=== PATIENT | male | born 1945 | race Caucasian/White ===

== ENCOUNTER 2018-06-15 07:40 | Day surgery (SDC) | payer MEDICARE, BC ==
[2018-06-14 13:18] VITALS: BMI 26.5
--- NOTE | 2018-06-15 01:50 | HP ---
SHORT-STAY HISTORY AND PHYSICAL DATE OF ADMISSION: 06/15/2018 HISTORY OF PRESENT ILLNESS: This is a 73-year-old male with a history of chronic acid reflux over the years. The patient has had EGD done I believe 6 years ago. 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 The patient advised to come back for EGD in 3 years, but did not come back until now. The patient takes Omeprazole with good symptom control. He does have occasional breakthrough symptoms. The patient also has had colonoscopy and polypectomy in 2013 with multiple sessile polyps removed. The patient comes in for colonoscopy because of multiple sessile polyps over in 2013 and for an EGD because of chronic acid reflux. ALLERGIES: None. MEDICAL ILLNESSES: 1. Chronic acid reflux. 2. Hypertension. 3. Colon polyp. 4. Hyperlipidemia. 5. Paroxysmal atrial fibrillation. 6. Coronary artery disease with defibrillator placement in the past. PHYSICAL EXAMINATION: VITAL SIGNS: Pulse is 70, blood pressure 130/80. HEENT: Conjunctivae clear. CARDIOVASCULAR SYSTEM: First and second heart sounds normal. LUNGS: Clear to auscultation. ABDOMEN: Soft to palpate. No organomegaly. No tenderness. No masses. EXTREMITIES: Reveal no edema. ADMITTING DIAGNOSES: 1. Chronic acid reflux, longstanding. 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 2. Multiple sessile polyps removed in the past. PLAN: EGD and colonoscopy. MTDD
--- NOTE | 2018-06-15 11:31 | OP ---
DATE OF PROCEDURE: 06/15/2018. OPERATIVE PROCEDURE: Colonoscopy. PREOPERATIVE DIAGNOSIS: Colon polyp. POSTOPERATIVE DIAGNOSES: 1. Sigmoid diverticular disease. 2. Hemorrhoids. PROCEDURE IN DETAIL: The patient was placed on his left lateral position and was given sedation by A nesthesia Department. A rectal exam was done before the scope was advanced into the rectum. No lesi ons were felt on rectal exam. A Pentax video colonoscope was introduced into the rectum and advanced all the way into the cecum. The prep was good. The mucosa appears normal through the colon. The a ppendiceal orifice, ileocecal valve, cecum, no pathology seen. Withdrawal of scope from the cecum to ascending colon, hepatic flexure, transverse colon, splenic flexure, descending colon, no pathology seen. The sigmoid colon showed scattered diverticula. Rectum showed hemorrhoids. DISCHARGE PLANNING: This is a 73-year-old male with a history of colon polyp on longstandi ng acid reflux who came for an EGD and a colonoscopy. The EGD showed irregular Z-line and duodenitis . The colonoscopy was basically negative. DISCHARGE RECOMMENDATIONS: 1. The patient was advised to call me if he develops any abdominal pain, hematochezia or fever. 2. High-fiber diet. 3. Metamucil once a day. 4. To come back to clinic in 2 weeks.
--- NOTE | 2018-06-15 11:42 | OP ---
DATE OF PROCEDURE: 06/15/2018 SURGEON: Francy Torres M.D. OPERATIVE PROCEDURE: Esophagogastroduodenoscopy with biopsy. PREOPERATIVE DIAGNOSIS: A 73-year-old male with longstanding acid reflux, previous EGD and biopsy showed Yeager's mucosa. The patient was on some PPI. The patient is undergoing an esophagogastroduodenoscopy. POSTOPERATIVE DIAGNOSES: 1. Irregular Z-line. 2. Duodenitis. PROCEDURE IN DETAIL: The patient was placed on his left lateral position and was given sedation by Anesthesia Department. A Pentax video gastroscope under direct vision was passed down the oropharynx, past the GE junction, into the stomach and subsequently into the descending duodenum. The esophageal mucosa appeared normal. The GE junction showed irregular Z-line. Biopsy taken of the area. The fundus, cardia, gastric body, gastric antrum, no pathology seen. The duodenal bulb showed erythematous mucosa. The descending duodenum, no pathology seen. The stomach was decompressed and the scope removed. DISCHARGE PLANNING: A 73-year-old male with history of colon polyps and also longstanding acid reflux. He had an EGD with biopsy and colonoscopy. DISCHARGE RECOMMENDATIONS: 1. The patient to take medicine as before. 2. He is advised to call me if he develops abdominal pain, hematochezia or fever. 3. In the absence of any of the above symptoms he is to come back to me in 2 weeks. MTDD
[2018-06-15] MEDS ORDERED: Lidocaine 1% PF 5 ML VIAL ONE (13:49)
[2018-06-15] MEDS ORDERED: PROPOFOL 200 MG/20 ML VIAL ONE (13:49)
== END 2018-06-15 12:48 | disposition home or self-care (01) ==
LOC: SDC 07:40
PROVIDERS: ATTEND Internal Medicine Gastroenterology
PROC: 0DB58ZX Excision of Esophagus, Via Natural or Artificial Opening Endoscopic, Diagnostic (ICD-10-PCS; principal; 2018-06-15)
PROC: 0DJD8ZZ Inspection of Lower Intestinal Tract, Via Natural or Artificial Opening Endoscopic (ICD-10-PCS; 2018-06-15)
DX: Z12.11 Encounter for screening for malignant neoplasm of colon (principal); K57.30 Diverticulosis of large intestine without perforation or abscess without bleeding; K64.9 Unspecified hemorrhoids; K29.80 Duodenitis without bleeding; K21.0 Gastro-esophageal reflux disease with esophagitis; I10 Essential (primary) hypertension; E78.5 Hyperlipidemia, unspecified; I48.0 Paroxysmal atrial fibrillation; Z86.010 Personal history of colon polyps; Z79.82 Long term (current) use of aspirin; Z79.899 Other long term (current) drug therapy
CPT/HCPCS: 43239; 88305; 88312; 88313; G0105; J2001; J2704

== ENCOUNTER 2019-08-30 09:32 | Outpatient (CLI) | payer MEDICARE, BC ==
[2019-08-30 16:35] LABS: #Eosinphils 0.1 thou/uL (0.0-0.7); #Lymphocytes 1.7 thou/uL (1.20-3.40); #Monocytes 0.8 thou/uL (0.11-0.59); #Neutrophils 5.6 thou/uL (1.40-6.50); %Basophils 0.4 % (0.0-1.0); %Monocytes 9.8 % (0.0-10.0); %Neutrophils 67.8 % (42.0-75.0); Hemoglobin 15.3 g/dL (14.0-18.0); Mean Corpuscular HGB CONC 34.5 g/dL (32.0-36.0); Mean Corpuscular Hemoglobin 32.4 pg (27.0-31.0); Mean Corpuscular Volume 93.7 fL (78.0-98.0); Mean Platelet Volume 6.9 fL (7.4-10.4); Platelet Count 199 thou/uL (130-400); RBC Distribution Width 11.3 % (11.5-14.5); Red Blood Cell (RBC) Count 4.74 mill/uL (4.70-6.10); White Blood Cell (WBC) Count 8.2 thou/uL (4.8-10.8)
--- NOTE | 2019-08-30 16:42 | RAD ---
XR Chest Pa Lat STANDARD HISTORY: Chest pain. Precardiac cath COMPARISON: 07/09/2019 FINDINGS: Changes of median sternotomy are again seen. Left-sided AICD remains in place. The heart si ze is normal. The lungs are well expanded without focal areas of consolidation, pneumothorax or pleural effusions. There is compression of a lower thoracic vertebral body. IMPRESSION: No radiographic evidence of acute cardiopulmonary process.
[2019-08-30 17:00] LABS: ALT (SGPT) 12 U/L (8-55); AST (SGOT) 13 U/L (5-34); Albumin 4.2 g/dL (3.4-4.8); Alkaline Phosphatase 35 U/L (40-110); Anion Gap 13 mmol/L (10-20); BUN (Urea Nitrogen) 18 mg/dL (8.4-25.7); Bilirubin, Total 0.5 mg/dL (0.2-1.2); Calc. Creatinine Clearance 0 mL/min (70-130); Calcium 9.5 mg/dL (7.8-10.44); Carbon Dioxide 27 mmol/L (23-31); Chloride 106 mmol/L (98-107); Estimated GFR-MDRD 59; Globulin 2.4 g/dL (2.4-3.5); Glucose 128 mg/dL (83-110); Potassium 4.1 mmol/L (3.5-5.1); Protein, Total 6.6 g/dL (5.8-8.1); Sodium 142 mmol/L (136-145)
== END 2019-08-30 09:33 | disposition home or self-care (01) ==
LOC: LABBT 09:32
PROVIDERS: ATTEND Internal Medicine Cardiovascular Disease
DX: Z01.812 Encounter for preprocedural laboratory examination (principal); R93.89 Abnormal findings on diagnostic imaging of other specified body structures
CPT/HCPCS: 71046; 80053; 85025

== ENCOUNTER 2019-09-01 06:00 | Day surgery (SDC) | payer MEDICARE, BC ==
[2019-08-30 15:54] VITALS: BMI 26.1
[2019-09-01] MEDS ORDERED: Heparin 10,000 UNITS/1 ML VIAL ONE (06:31)
[2019-09-01] MEDS ORDERED: Lidocaine 1% (PF) 30 ML VIAL ONE (06:31)
[2019-09-01] MEDS ORDERED: Heparin (Artline) 1,000 ML ONE (06:31)
[2019-09-01 07:01] LABS: Cardiac Risk 4.3 (Less than 4.5)
[2019-09-01] MEDS ORDERED: Midazolam HCl 2 mg/2 ml Vial ONE (07:02)
[2019-09-01] MEDS ORDERED: Fentanyl 100 MCG/2 ML VIAL ONE (07:02)
[2019-09-01] MEDS ORDERED: Protamine Sulfate 50 MG/5 ML VIAL ONE (07:40)
[2019-09-01] MEDS ORDERED: Iopamidol 370 76% 100 ML VIAL ONE (20:19)
[2019-09-01] MEDS ORDERED: Iopamidol 370 76% 50 ML VIAL FS ONE (20:19)
== END 2019-09-01 15:50 | disposition home or self-care (01) ==
LOC: CCL 06:00
PROVIDERS: ATTEND Internal Medicine Cardiovascular Disease
PROC: 4A023N7 Measurement of Cardiac Sampling and Pressure, Left Heart, Percutaneous Approach (ICD-10-PCS; principal; 2019-09-01)
PROC: B2111ZZ Fluoroscopy of Multiple Coronary Arteries using Low Osmolar Contrast (ICD-10-PCS; 2019-09-01)
PROC: B2121ZZ Fluoroscopy of Single Coronary Artery Bypass Graft using Low Osmolar Contrast (ICD-10-PCS; 2019-09-01)
PROC: B2181ZZ Fluoroscopy of Left Internal Mammary Bypass Graft using Low Osmolar Contrast (ICD-10-PCS; 2019-09-01)
DX: I25.810 Atherosclerosis of coronary artery bypass graft(s) without angina pectoris (principal); I25.10 Atherosclerotic heart disease of native coronary artery without angina pectoris; I44.7 Left bundle-branch block, unspecified; I34.0 Nonrheumatic mitral (valve) insufficiency; I25.5 Ischemic cardiomyopathy; E78.00 Pure hypercholesterolemia, unspecified; I10 Essential (primary) hypertension; Z79.82 Long term (current) use of aspirin; Z79.899 Other long term (current) drug therapy; Z95.1 Presence of aortocoronary bypass graft; Z95.810 Presence of automatic (implantable) cardiac defibrillator
CPT/HCPCS: 80061; 85347; 93459; 99152; 99153; C1769; J1644; J2001; J2250; J2720; J3010; Q9967

== ENCOUNTER 2019-09-26 06:39 | Outpatient (CLI) | payer MEDICARE, BC ==
[2019-09-26 15:08] LABS: Hemoglobin 14.6 g/dL (14.0-18.0); Mean Corpuscular HGB CONC 33.4 g/dL (32.0-36.0); Mean Corpuscular Hemoglobin 31.6 pg (27.0-31.0); Mean Corpuscular Volume 94.5 fL (78.0-98.0); Mean Platelet Volume 7.5 fL (7.4-10.4); Platelet Count 194 thou/uL (130-400); RBC Distribution Width 11.2 % (11.5-14.5); Red Blood Cell (RBC) Count 4.64 mill/uL (4.70-6.10); White Blood Cell (WBC) Count 7.3 thou/uL (4.8-10.8)
[2019-09-26 15:27] LABS: Anion Gap 12 mmol/L (10-20); BUN (Urea Nitrogen) 22 mg/dL (8.4-25.7); Calc. Creatinine Clearance 0 mL/min (70-130); Calcium 9.4 mg/dL (7.8-10.44); Carbon Dioxide 29 mmol/L (23-31); Chloride 104 mmol/L (98-107); Estimated GFR-MDRD 64; Glucose 107 mg/dL (83-110); Potassium 4.5 mmol/L (3.5-5.1); Sodium 140 mmol/L (136-145)
== END 2019-09-26 06:40 | disposition home or self-care (01) ==
LOC: LABBT 06:39
PROVIDERS: ATTEND Neurological Surgery
DX: Z01.812 Encounter for preprocedural laboratory examination (principal); M48.062 Spinal stenosis, lumbar region with neurogenic claudication
CPT/HCPCS: 80048; 85027

== ENCOUNTER 2019-09-27 05:49 | Day surgery (SDC) | payer MEDICARE, BC ==
[2019-09-26 12:54] VITALS: BMI 25.8
[2019-09-27] MEDS ORDERED: Thrombin 5000 UNITS/5 ML VIAL ONE (06:42)
[2019-09-27] MEDS ORDERED: Bupivacaine HCl 0.5%/Epinephrine 1:200,000/PF 30 ml Vial ONE (06:42)
[2019-09-27] MEDS ORDERED: Fentanyl 100 MCG/2 ML VIAL ONE ×2 (06:52→09:02)
[2019-09-27] MEDS ORDERED: Phenylephrine HCL 10 MG/ML VIAL ONE (06:52)
--- NOTE | 2019-09-27 07:33 | HP ---
HISTORY OF PRESENT ILLNESS: Mr. Santos is a pleasant 74-year-old man, here today for evaluation of roughly 1 year of lower back pain along with right lower extremity L5 pains and neurogenic claudication, over the last two months, started to progressively worsen. He is a CT from [place] that reveals severe central canal stenosis from L3 through L5 with the retrograde listhesis at L5-S1. I feel that the central canal stenosis is most likely the majority of his pain. He cannot have an MRI secondary to internal defibrillator. He has treated this with oral medications and injections and although these help, his pain continues to return. PAST MEDICAL HISTORY: Significant for osteoarthritis, seasonal allergy, coronary arterial disease, hypertension, hypercholesterolemia. PAST SURGICAL HISTORY: Placement of AICD and cardiac bypass. CURRENT MEDICATIONS: 1. Hydralazine. 2. Potassium. 3. Carvedilol. 4. Rosuvastatin. 5. Pantoprazole. 6. Losartan. 7. Ecotrin. 8. Alprazolam. 9. Dicyclomine. ALLERGIES: NO KNOWN DRUG ALLERGIES. PHYSICAL EXAMINATION: The patient is alert and oriented x3. Gait is severely antalgic, slowed and stooped. Lower extremity motor exam is normal. Positive bilateral straight leg raise. ASSESSMENT: spinal stenosis with radiculopathy and claudication. PLAN: Dr. Simpson met with the patient, reviewed imaging, advocated for L2 through L5 decompression. He explained to the patient the risks, benefits, and alternatives of procedure. He expressed understanding and elected to move forward with surgery as discussed. I do believe he is mentally competent and capable of making medical decisions for himself, we will move forward with surgery as planned. Job ID: [id number]
[2019-09-27] MEDS ORDERED: HYDROmorphone 0.5 MG/0.5 ML SYRINGE ONE (07:50)
[2019-09-27] MEDS ORDERED: Tamsulosin HCl 0.4 MG CAP ONE (08:59)
[2019-09-27] MEDS ORDERED: Ketorolac Tromethamine 30 MG/ML VIAL ONE (09:31)
[2019-09-27] MEDS ORDERED: PROPOFOL 200 MG/20 ML VIAL ONE (09:31)
[2019-09-27] MEDS ORDERED: PHENYLEPHRINE-NS 100 MCG/ML 10 ML SYRINGE ONE (09:31)
[2019-09-27] MEDS ORDERED: Lidocaine 1% PF 5 ML VIAL ONE (09:31)
[2019-09-27] MEDS ORDERED: Glycopyrrolate 0.2 MG/ML 5 ML SYRINGE ONE (09:31)
[2019-09-27] MEDS ORDERED: Ondansetron PF 4 MG/2 ML Vial ONE (09:31)
[2019-09-27] MEDS ORDERED: Rocuronium Bromide 10 MG/ML (10ML VIAL) ONE (09:31)
--- NOTE | 2019-09-27 11:14 | OP ---
DATE OF PROCEDURE: 09/27/2019 HYDROCHLORIC ACID OPERATOR: Zay Bell PA-C INDICATION: Pain. DIAGNOSIS: Lumbar stenosis. PROCEDURE PERFORMED: L2 through L5 lumbar decompression. ANESTHESIA: General. DESCRIPTION OF PROCEDURE: The patient was brought into the operating room and placed under general anesthesia. He was flipped from supine to prone position. A linear incision was planned over L2 through L5. After prepping and draping and after an appropriate perioperative pause, the incision was created. The soft tissues were swept away from midline. A self-retaining retractor was placed for optimal exposure. After confirming the appropriate level with C-arm fluoroscopy, an Adson rongeur was used to move the spinous process of L3 and L4 as well as the inferior aspect of L2 and the superior aspect of L5. High-speed cutting drill bit as well as 2, 3, and 4 mm Kerrisons were then used to complete the laminectomy, which extended laterally to encompass the medial aspect of the facet joints. After decompressing those segments, the wound was irrigated. Hemostasis was maintained throughout. The wound was then closed in anatomic layers and a pressure dressing was applied. There were no known procedural complications. Job ID: [id number]
[2019-09-27] MEDS ORDERED: Acetaminophen/Codeine 30-300mg Tablet ONE (12:26)
== END 2019-09-27 12:40 | disposition home or self-care (01) ==
LOC: SDC 05:49
PROVIDERS: ATTEND Neurological Surgery
PROC: 0ST20ZZ Resection of Lumbar Vertebral Disc, Open Approach (ICD-10-PCS; principal; 2019-09-27)
DX: M48.062 Spinal stenosis, lumbar region with neurogenic claudication (principal); M54.16 Radiculopathy, lumbar region; I10 Essential (primary) hypertension; I25.5 Ischemic cardiomyopathy; I25.10 Atherosclerotic heart disease of native coronary artery without angina pectoris; E78.5 Hyperlipidemia, unspecified; Z79.899 Other long term (current) drug therapy; Z95.1 Presence of aortocoronary bypass graft; Z95.810 Presence of automatic (implantable) cardiac defibrillator
CPT/HCPCS: 76000; J0670; J0690; J1170; J1885; J2001; J2370; J2405; J2704; J3010

== ENCOUNTER 2020-07-04 05:51 | Outpatient (CLI) | payer MEDICARE, BC, OTHER ==
[2020-07-04 14:10] LABS: #Eosinphils 0.2 thou/uL (0.0-0.7); #Lymphocytes 1.3 thou/uL (1.20-3.40); #Monocytes 0.6 thou/uL (0.11-0.59); #Neutrophils 4.6 thou/uL (1.40-6.50); %Basophils 0.4 % (0.0-1.0); %Eosinophils 3.1 % (0.0-10.0); %Lymphocytes 19.8 % (21.0-51.0); %Monocytes 8.7 % (0.0-10.0); Hemoglobin 14.8 g/dL (14.0-18.0); Mean Corpuscular HGB CONC 34.1 g/dL (32.0-36.0); Mean Corpuscular Hemoglobin 31.7 pg (27.0-31.0); Mean Corpuscular Volume 93.1 fL (78.0-98.0); Mean Platelet Volume 8.3 fL (7.4-10.4); Platelet Count 183 thou/uL (130-400); RBC Distribution Width 11.5 % (11.5-14.5); Red Blood Cell (RBC) Count 4.68 mill/uL (4.70-6.10); White Blood Cell (WBC) Count 6.8 thou/uL (4.8-10.8)
[2020-07-04 14:38] LABS: Prothrombin Time 13.5 sec (12.0-14.7)
[2020-07-04 14:47] LABS: Bacteria/HPF None Seen HPF (None Seen); Bilirubin Negative (Negative); Blood, Urine Negative (Negative); Clarity Clear (Clear); Glucose, Urine (Dipstick) Normal (Negative); Ketone, Urine Negative (Negative); Leukocyte Negative Leu/uL (Negative); Nitrite Negative (Negative); Protein, Urine (Dipstick) Negative (Neg-Trace); RBC/HPF 0-3 HPF (0-3); Specific Gravity, Urine 1.023 (1.002-1.036); Squamous Epithelial None Seen HPF (0-3); Urobilinogen Normal mg/dL (Less than 2); WBC/HPF 0-3 HPF (0-3); pH, Urine 5.5 (5.0-9.0)
[2020-07-04 15:01] LABS: Anion Gap 13 mmol/L (10-20); BUN (Urea Nitrogen) 26 mg/dL (8.4-25.7); Calc. Creatinine Clearance 0 mL/min (70-130); Carbon Dioxide 24 mmol/L (23-31); Chloride 103 mmol/L (98-107); Estimated GFR-MDRD 75; Glucose 155 mg/dL (83-110); Potassium 4.7 mmol/L (3.5-5.1); Sodium 135 mmol/L (136-145)
--- NOTE | 2020-07-05 16:44 | EKG ---
Test Reason : Blood Pressure : / mmHG Vent. Rate : 060 BPM Atrial Rate : 060 BPM P-R Int : 000 ms QRS Dur : 148 ms QT Int : 458 ms P-R-T Axes : 048 193 014 degrees QTc Int : 458 ms AV dual-paced rhythm with prolonged AV conduction Abnormal ECG No previous ECGs available Confirmed by DR. Montserrat WALDROP ([id number]) on 07/05/2020 4:44:18 PM Referred By: GRIFFIN Confirmed By:DR. Montserrat WALDROP
[2020-07-06 13:59] LABS: SARS-CoV-2 MS2 Positive; SARS-CoV-2 N Gene Negative; SARS-CoV-2 S Gene Negative; SARS-CoV-2 by NAA Not Detected (NotDetected); SARS-CoV-2 orf1ab Negative
== END 2020-07-04 05:52 | disposition home or self-care (01) ==
LOC: LABBT 05:51
PROVIDERS: ATTEND Orthopaedic Surgery
DX: Z01.818 Encounter for other preprocedural examination (principal); Z20.828 Contact with and (suspected) exposure to other viral communicable diseases; M17.11 Unilateral primary osteoarthritis, right knee
CPT/HCPCS: 80048; 81001; 85025; 85610; 87081; 93005; U0003; 87635; 93010

== ENCOUNTER 2020-07-04 11:15 | Inpatient (IN) | payer MEDICARE, BC ==
[2020-07-09] MEDS ORDERED: Tranexamic Acid 1,000 MG/10 ML VIAL ONE (08:47)
[2020-07-09] MEDS ORDERED: Vancomycin 1.5 GRAM/300 ML BAG ONE (08:47)
[2020-07-09] MEDS ORDERED: Sodium Chloride 0.9% 100 ML ONE (08:47)
[2020-07-09] MEDS ORDERED: Fentanyl 100 MCG/2 ML VIAL ONE ×4 (09:17→14:21)
[2020-07-09] MEDS ORDERED: Midazolam HCl 2 mg/2 ml Vial ONE (09:17)
[2020-07-09] MEDS ORDERED: Dexamethasone 20 MG/5 ML VIAL ONE (09:32)
[2020-07-09] MEDS ORDERED: Ondansetron PF 4 MG/2 ML Vial ONE (09:32)
[2020-07-09] MEDS ORDERED: Ropivacaine 0.2% HCl/PF (40 MG/20 ML VIAL) ONE (09:32)
[2020-07-09] MEDS ORDERED: Bupivacaine HCl 0.5%/Epinephrine 1:200,000/PF 30 ml Vial ONE (09:32)
[2020-07-09] MEDS ORDERED: PROPOFOL 200 MG/20 ML VIAL ONE (09:32)
[2020-07-09] MEDS ORDERED: Lidocaine 1% PF 5 ML VIAL ONE (09:32)
[2020-07-09] MEDS ORDERED: Acetaminophen 325 MG TAB PO PRN ×2 (10:21→11:53)
[2020-07-09] MEDS ORDERED: Zolpidem Tartrate 5 MG TAB PO PRN ×2 (10:21→11:53)
[2020-07-09] MEDS ORDERED: Ropivacaine HCl/PF 250 ML in Premix Bag 1 BAG NERVE BLCK SCH (10:21)
[2020-07-09] MEDS ORDERED: Promethazine HCl 25 MG/ML VIAL IM PRN ×3 (10:21→13:23)
[2020-07-09] MEDS ORDERED: HYDROcodone/Acetaminophen 10/325 mg Tablet PO PRN ×2 (10:21)
[2020-07-09] MEDS ORDERED: traMADol HCl 50 MG TAB PO PRN ×2 (10:21)
[2020-07-09] MEDS ORDERED: Ondansetron PF 4 MG/2 ML Vial IVP PRN ×2 (10:21→11:53)
[2020-07-09] MEDS ORDERED: Fentanyl 100 MCG/2 ML VIAL IV PRN (10:22)
[2020-07-09] MEDS ORDERED: diphenhydrAMINE 25 MG CAP PO PRN (11:53)
[2020-07-09] MEDS ORDERED: Melatonin 3 MG TAB PO PRN (12:17)
[2020-07-09] MEDS ORDERED: Promethazine HCl 25 MG/ML VIAL SLOW IVP PRN (13:23)
[2020-07-09] MEDS ORDERED: PACU-Morphine 4MG/ML VIAL SLOW IVP PRN (13:23)
[2020-07-09] MEDS ORDERED: Ketorolac Tromethamine 30 MG/ML VIAL ONE (14:36)
--- NOTE | 2020-07-09 15:49 | PDOC.FPRHP ---
- History of Present Illness Chief Complaint: R TKA History of Present Illness: Pt is a 75 yo male with PMH significant for BPH, anxiety resulting in difficulty sleeping, HTN, GERD, HLD who presented today for a scheduled R TKA. TAMP is being consulted for medical management. He is doing well after his surgery. AAO x 3. He has recently been seen by Dr. Morrow, cardiology w/o any changes. PCP: Simeon - Allergies/Adverse Reactions Allergies Allergy/AdvReac Type Severity Reaction Status Date / Time No Known Allergies Allergy Verified 07/09/20 16:05 - Home Medications Medication Instructions Recorded Confirmed Type ALPRAZolam [Alprazolam] 1 tab PO HS 06/14/18 07/03/20 History Carvedilol 1 tab PO BID 06/14/18 07/03/20 History Co Q 10 1 tab PO DAILY 06/14/18 07/03/20 History Dicyclomine HCl 1 tab PO BID 06/14/18 07/03/20 History Furosemide 1 tab PO QAM 06/14/18 07/03/20 History Losartan Potassium 1 tab PO QAM 06/14/18 07/03/20 History Pantoprazole Sodium 1 tab PO QAM 06/14/18 07/03/20 History Potassium Chloride 20 meq PO BID 06/14/18 07/03/20 History Aspirin [Ecotrin] 325 mg PO DAILY 08/30/19 07/03/20 History Rosuvastatin Calcium [Crestor] 40 mg PO QAM 08/30/19 07/03/20 History Spironolactone 1 tab PO DAILY 08/30/19 07/03/20 History levOCARNitine Tartrate 500 mg PO DAILY 08/30/19 07/03/20 History [L-Carnitine] Dutasteride 1 cap PO QAM 07/03/20 07/03/20 History Melatonin 10 mg PO HS PRN 07/03/20 07/03/20 History Tamsulosin HCl [Flomax] 0.4 mg PO BID 07/03/20 07/03/20 History - History PMHx: Anx, HTN, GERD, BPH, HLD, CAD s/p CABG x 4 PSHx: Defib/Pacemaker, Back Surg, Inguinal hernia repair FHx: non-contributory Social: denies alcohol, drugs, tobacco - Review of Systems General: denies: fever/chills, weight/appetite/sleep changes Eyes: denies: eye pain, vision changes ENT: denies: nasal congestion, rhinorrhea Respiratory: denies: cough, congestion, shortness of breath Cardiovascular: denies: chest pain, palpitation Gastrointestinal: denies: nausea, vomiting, diarrhea, constipation Genitourinary: denies: incontinence, dysuria Skin: denies: rashes, lesions Musculoskeletal: reports: pain, stiffness, arthritis/arthralgias Neurological: denies: numbness, syncope Psychological: denies: anxiety, depression - Vital signs BP: 130/70 HR: 61 RR: 18 Tmax: 97.5 Pox: 96% on RA Wt: 85 kg - Physical Exam Constitutional: NAD, awake, alert and oriented HEENT: PERRLA, EOMI Neck: FROM, trachea midline Heart: RRR, normal S1/S2, pulses present, no edema Lungs: CTAB, no respiratory distress, good air movement, no wheezing Abdomen: soft, non-tender, bowel sounds present Musculoskeletal: normal tone -Musculoskeletal: R TKA wrapped w/o significant swelling Neurological: no focal deficit, CN II-XII intact, normal sensation Skin: no rash/lesions, good turgor Heme/Lymphatic: no purpura, no petechia Psychiatric: normal mood and affect, good judgment and insight FMR H&P: A/P - Problem List (1) Hx of total knee arthroplasty Current Visit: Yes Status: Acute Code(s): Z96.659 - PRESENCE OF UNSPECIFIED ARTIFICIAL KNEE JOINT (2) Anxiety Current Visit: Yes Status: Acute Code(s): F41.9 - ANXIETY DISORDER, UNSPECIFIED (3) HTN (hypertension) Current Visit: Yes Status: Acute Code(s): I10 - ESSENTIAL (PRIMARY) HYPERTENSION (4) BPH (benign prostatic hyperplasia) Current Visit: Yes Status: Acute Code(s): N40.0 - BENIGN PROSTATIC HYPERPLASIA WITHOUT LOWER URINRY TRACT SYMP (5) CAD (coronary artery disease) Current Visit: Yes Status: Acute Code(s): I25.10 - ATHSCL HEART DISEASE OF [place] CORONARY ARTERY W/O ANG PCTRS (6) GERD (gastroesophageal reflux disease) Current Visit: Yes Status: Acute Code(s): K21.9 - GASTRO-ESOPHAGEAL REFLUX DISEASE WITHOUT ESOPHAGITIS - Plan Pt is a 75 yo male here for R TKA and TAMP is consulted for medical management: # R TKA - care per surgical team - PT/OT - CM for discharge # CAD s/p bypass x 4 - restart ASA per surgical team - restart home bp meds - outpt cards - Dr. Morrow who recently saw pt - Defib/Pacer # Anxiety w/ sleep - continue home meds # HTN - continue home meds - monitor blood pressure # BPH - continue home meds # HLD - continue home meds # GERD - continue home meds VTE: per surgical team Diet: HH Fluids: NS 100 mls/hr Code: Full Dispo: admit to surgical floor, start PT/OT FMR H&P: Upper Level - Plan Date/Time: 07/09/20 1548 I, [], have evaluated this patient and agree with findings/plan as outlined by journalism intern resident. Pertinent changes/additions are listed here.
[2020-07-09 16:03] VITALS: BMI 27.0
[2020-07-09] MEDS: CEFAZOLIN 2 GM in Premix Bag 1 BAG IVPB SCH ×2 (17:04→23:59)
[2020-07-09] MEDS: Ketorolac Tromethamine 30 MG/ML VIAL IVP SCH ×4 (17:05→23:58)
[2020-07-09] MEDS: Potassium Chloride 20 MEQ TAB PO SCH (17:06)
[2020-07-09] MEDS: Sodium Chloride 0.9% 1,000 ML IV SCH ×2 (17:10→23:51)
--- NOTE | 2020-07-09 20:54 | RAD ---
RIGHT KNEE TWO VIEWS: 07/09/20 HISTORY: Total knee postop. FINDINGS/IMPRESSION: There are recent postop changes of total knee arthroplasty in good position and alignment. Soft tiss ue air is present. POS: MARYA
[2020-07-09] MEDS ORDERED: Aspirin 81 mg Enteric Coated Tablet PO SCH (21:00)
[2020-07-09] MEDS: Dicyclomine 20 MG TAB PO SCH (21:32)
[2020-07-09] MEDS: ALPRAZolam 1 MG TAB PO SCH (21:32)
[2020-07-09] MEDS: Carvedilol 25 MG TAB PO SCH (21:32)
[2020-07-09] MEDS: Rosuvastatin 20 MG TAB PO SCH (21:32)
[2020-07-09] MEDS: Tamsulosin HCl 0.4 MG CAP PO SCH (21:32)
[2020-07-10] MEDS: Ketorolac Tromethamine 30 MG/ML VIAL IVP SCH ×3 (04:29→17:54)
[2020-07-10 05:07] LABS: Hemoglobin 12.7 g/dL (14.0-18.0); Mean Corpuscular HGB CONC 33.6 g/dL (32.0-36.0); Mean Corpuscular Hemoglobin 31.2 pg (27.0-31.0); Mean Corpuscular Volume 92.8 fL (78.0-98.0); Mean Platelet Volume 7.5 fL (7.4-10.4); Platelet Count 160 thou/uL (130-400); RBC Distribution Width 11.3 % (11.5-14.5); Red Blood Cell (RBC) Count 4.08 mill/uL (4.70-6.10); White Blood Cell (WBC) Count 10.9 thou/uL (4.8-10.8)
--- NOTE | 2020-07-10 07:16 | PDOC.FM ---
- Subjective Subjective: Pt is doing well today. His pain is well controlled. He received his coreg yesterday without any episodes of hypotension. He remains on the IV pain medications. Denies chest pain, sob, cough, congestion, significant le swelling , decreased sensation. - Objective Vital Signs & Weight: Vital Signs (12 hours) Temp Pulse Resp BP BP Pulse Ox 07/10/20 04:30 98.0 F 74 20 110/50 L 96 07/10/20 00:05 97.3 F L 81 20 103/62 96 07/09/20 20:00 97.6 F 80 20 107/67 96 Weight Weight 85.502 kg I&O: 07/09/20 07/10/20 07/11/20 06:59 06:59 06:59 Intake Total 1260 Output Total 700 Balance 560 Result Diagrams: 07/10/20 04:47 Phys Exam - Physical Examination Constitutional: NAD HEENT: PERRLA, moist MMs Neck: no JVD, full ROM Respiratory: no wheezing, clear to auscultation bilateral Cardiovascular: RRR, no significant murmur Gastrointestinal: soft, positive bowel sounds Musculoskeletal: no edema, pulses present Neurological: normal sensation, moves all 4 limbs Psychiatric: A&O x 3 Skin: no rash, cap refill <2 seconds Dx/Plan (1) Hx of total knee arthroplasty Code(s): Z96.659 - PRESENCE OF UNSPECIFIED ARTIFICIAL KNEE JOINT Status: Acute (2) Anxiety Code(s): F41.9 - ANXIETY DISORDER, UNSPECIFIED Status: Acute (3) HTN (hypertension) Code(s): I10 - ESSENTIAL (PRIMARY) HYPERTENSION Status: Acute (4) BPH (benign prostatic hyperplasia) Code(s): N40.0 - BENIGN PROSTATIC HYPERPLASIA WITHOUT LOWER URINRY TRACT SYMP Status: Acute (5) CAD (coronary artery disease) Code(s): I25.10 - ATHSCL HEART DISEASE OF [place] CORONARY ARTERY W/O ANG PCTRS Status: Acute (6) GERD (gastroesophageal reflux disease) Code(s): K21.9 - GASTRO-ESOPHAGEAL REFLUX DISEASE WITHOUT ESOPHAGITIS Status: Acute - Plan Plan: Pt is a 75 yo male here for R TKA and TAMP is consulted for medical management: # R TKA - care per surgical team - PT/OT - CM for discharge # CAD s/p bypass x 4 - restart ASA per surgical team - restart home bp meds as below - outpt cards - Dr. Morrow who recently saw pt - Defib/Pacer # Anxiety w/ sleep - continue home meds # HTN - hold lasix, spironolactone in the setting of low normal BP's. Will restart coreg, losartan and add meds as bp increases - monitor blood pressure # BPH - continue home meds # HLD - continue home meds # GERD - continue home meds VTE: per surgical team Diet: HH Code: Full Dispo: admit to surgical floor, start PT/OT Addendum - Attending - Attending Attestation Date/Time: 07/10/20 1850 I personally evaluated the patient and discussed the management with Dr. Nunn. I agree with the History, Examination, Assessment and Plan documented above with any addition or exceptions noted below. The patient was doing well this morning. He was waiting to have physical therapy. Pain was controlled. Blood pressure controlled. Will add back bp meds as his blood pressure increases. This morning it is low most likely due to the pain meds.
[2020-07-10] MEDS ORDERED: LEVOCARNITINE TARTRATE 500 MG PO SCH (09:00)
[2020-07-10] MEDS ORDERED: Furosemide 40 MG TAB PO SCH (09:00)
[2020-07-10] MEDS ORDERED: Spironolactone 25 MG TAB PO SCH ×2 (09:00→12:45)
[2020-07-10] MEDS: Potassium Chloride 20 MEQ TAB PO SCH ×2 (09:14→18:05)
[2020-07-10] MEDS: Senokot S 8.6-50 MG TAB PO SCH ×2 (09:14→20:10)
[2020-07-10] MEDS: Losartan 25 MG TAB PO SCH (09:15)
[2020-07-10] MEDS: Ubidecarenone 50 MG CAP PO SCH (09:15)
[2020-07-10] MEDS: Multivitamin W/ Minerals 1 TAB PO SCH (09:15)
[2020-07-10] MEDS: Ferrous Gluconate 324 MG TAB PO SCH ×2 (09:15→20:11)
[2020-07-10] MEDS: Carvedilol 25 MG TAB PO SCH ×2 (09:15→20:11)
[2020-07-10] MEDS: Aspirin 325 mg Enteric Coated Tablet PO SCH (09:15)
[2020-07-10] MEDS: Dicyclomine 20 MG TAB PO SCH ×2 (09:15→20:11)
[2020-07-10] MEDS: Dutasteride 0.5 MG CAP PO SCH (09:15)
[2020-07-10] MEDS: Tamsulosin HCl 0.4 MG CAP PO SCH ×2 (09:15→20:10)
[2020-07-10] MEDS: Sodium Chloride 0.9% 1,000 ML IV SCH ×2 (09:16→18:15)
--- NOTE | 2020-07-10 11:10 | OP ---
DATE OF PROCEDURE: 07/09/2020 PREOPERATIVE DIAGNOSIS: Degenerative joint disease, right knee. POSTOPERATIVE DIAGNOSIS: Degenerative joint disease, right knee. PROCEDURE PERFORMED: Right total knee arthroplasty using Abilio Triathlon 4 femur, 4 tibia, 9 mm CS X3 polyethylene, and an A29 patella. PICKLING SOLUTION MAKER: Baljit Dorantes PA-C PROCEDURE IN DETAIL: After informed consent was obtained in the preoperative holding area, the patient was taken to the operative suite where general anesthesia was induced. Once adequate level of general anesthesia was obtained, the patient was positioned and a well-padded tourniquet was placed around the right proximal thigh. The right lower extremity was then prepped and draped in the usual sterile fashion. Prior to exsanguination, a time-out was called and all members of the surgical team agreed upon site, surgeon, and patient. The extremity was then exsanguinated and the tourniquet was raised. A midline longitudinal incision was then made directly over the patella extending 2 fingerbreadths above the superior pole of the patella and 2 fingerbreadths inferior to the inferior patellar pole of the patella. Deeper subcutaneous layers were dissected sharply and local bleeding was controlled with Bovie electrocautery. A quad tendon longitudinal split was then made sharply and a median parapatellar arthrotomy was carried out both sharp and with Bovie electrocautery, carried down to 1 fingerbreadth medial to the tibial tubercle. The knee was then placed into flexion and the patella was everted nicely, and a copious fat pad ectomy was performed allowing for greater exposure of the tibia. The computer-assisted distal femoral fiducial was then placed and pinned firmly, and the distal femoral cutting guide was pinned firmly into place. The oscillating saw was then used to remove the appropriate amount of bone. The 4-in-1 cutting block was then placed on the distal femur and the oscillating saw was used to remove the appropriate amount of bone off the anterior, posterior, and chamfer cuts. After completion of bone cuts, the anterior cruciate ligament was resected sharply and the posterior cruciate ligament retractor was placed and the tibia was subluxed for better exposure. Partial meniscectomies were carried out, and the tibial computer-assisted fiducial was pinned, and the cutting guide was placed. Oscillating saw was then used to remove the bone, with Hohmann retractors used to take care and protect the collateral ligaments. After the tibial resection was performed, a laminar assistant purchasing manager was placed in between the freshened bone cuts. The knee placed at 90 degrees and further bilateral meniscectomies were carried out, and the curved osteotome and curettage were used to remove any excess bone spurs in the posterior compartment. The trial femoral component, tibial baseplate were placed with the appropriate polyethylene trial insert with an appropriate polyethylene spacer and patellar button. The knee was taken through full range of motion with flexion and extension from 0 to 90 degrees and patellar broach squarely in the trochlea without any squinting or subluxation noted. The knee was also stable to varus and valgus stressing at 0, 15, 45, and 90 degrees of flexion. The drawer was negative. All trial components were then removed and the keel punch was used to provide the appropriate defect in the tibia with a mallet. The freshened bone cuts were copiously irrigated with pulsatile lavage of about 1.5 L to remove all excess debris. The freshened bone cuts were then dried with suction and lap sponge. The knee was placed in flexion and retractors were placed to provide access to all bone cuts. Tobramycin-impregnated methyl methacrylate cement was then placed on the freshened bone cuts and implants which were malleted firmly into place. Curettage and Highwood elevators were used to remove any excess bone cement. The knee was placed into full extension and the patellar button was placed under compression, and the cement was allowed to cure. Once completed, the components were again taken through full range of motion and copious irrigation of the knee was carried out with another liter of normal saline. All components were inspected fully with full range of motion and varus and valgus stressing. There was no laxity noted and full extension was observed clinically. Primary closure was accomplished with #2 interrupted Vicryl stitch of the arthrotomy defect. This was oversewn with a #2 running Quill barbed stitch. The gravitational platelet system was then injected into the arthrotomy prior to closure. The subcutaneous layer was then closed with a running 0 barbed Monocryl stitch and skin closure accomplished with a running subcuticular 3-0 Monocryl barbed Quill stitch and augmented with cement on the skin. Tourniquet was lowered. Good spontaneous return of distal pulses was noted clinically and a sterile dressing was applied to the incision. The procedure was terminated without any complications. The patient was awakened in the operative suite and the patient was taken to the recovery room in stable condition. Job ID: [id number]
--- NOTE | 2020-07-10 12:20 | PRG ---
DATE OF SERVICE: 07/10/2020 SUBJECTIVE: Shekhar is a 75-year-old male, postop day 1 from right total knee arthroplasty. He is doing very well. He ambulated yesterday evening with comfort knees. OBJECTIVE: VITAL SIGNS: Temperature 98.2, pulse 98, respiratory rate 16, and blood pressure 147/65. GENERAL: He is alert and oriented to person, place, time, and situation. Responsive and appropriate with examiner. Conversive. EXTREMITIES: Incision is clean. No erythema. No strikethrough. He is neurovascularly intact in the right lower extremity. LABORATORY DATA: Hemoglobin and hematocrit are 12.7 and 37.9. IMPRESSION: This is a 75-year-old male, postoperative day 1 right total knee arthroplasty, doing very well. PLAN: Continue current care. Expected discharge to home tomorrow. Job ID: [id number]
[2020-07-10] MEDS: Calcium Carbonate 500 MG ChewTAB PO PRN ×2 (15:03→20:10)
[2020-07-10] MEDS: Rosuvastatin 20 MG TAB PO SCH (20:10)
[2020-07-10] MEDS: ALPRAZolam 1 MG TAB PO SCH (20:11)
[2020-07-11] MEDS: Ketorolac Tromethamine 30 MG/ML VIAL IVP SCH ×2 (00:16→06:10)
[2020-07-11] MEDS: Sodium Chloride 0.9% 1,000 ML IV SCH (04:12)
--- NOTE | 2020-07-11 06:52 | PDOC.FM ---
- Subjective Subjective: Pt is doing well today. He has no complaints. He is working well with PT. He denies loss of sensation to LE. - Objective Vital Signs & Weight: Vital Signs (12 hours) Temp Pulse Resp BP Pulse Ox 07/11/20 03:59 97.9 F 68 18 107/64 95 07/11/20 00:07 98.9 F 68 18 150/73 H 96 07/10/20 20:51 98.3 F 68 18 134/71 98 Weight Admit Weight 85.502 kg Weight 85.502 kg I&O: 07/09/20 07/10/20 07/11/20 06:59 06:59 06:59 Intake Total 1260 750 Output Total 700 1125 Balance 560 -375 Result Diagrams: 07/10/20 04:47 Phys Exam - Physical Examination Constitutional: NAD HEENT: PERRLA, moist MMs Respiratory: no wheezing, clear to auscultation bilateral Cardiovascular: RRR, no significant murmur Musculoskeletal: no edema, pulses present Neurological: non-focal, normal sensation Dx/Plan (1) Hx of total knee arthroplasty Code(s): Z96.659 - PRESENCE OF UNSPECIFIED ARTIFICIAL KNEE JOINT Status: Acute (2) Anxiety Code(s): F41.9 - ANXIETY DISORDER, UNSPECIFIED Status: Acute (3) HTN (hypertension) Code(s): I10 - ESSENTIAL (PRIMARY) HYPERTENSION Status: Acute (4) BPH (benign prostatic hyperplasia) Code(s): N40.0 - BENIGN PROSTATIC HYPERPLASIA WITHOUT LOWER URINRY TRACT SYMP Status: Acute (5) CAD (coronary artery disease) Code(s): I25.10 - ATHSCL HEART DISEASE OF [place] CORONARY ARTERY W/O ANG PCTRS Status: Acute (6) GERD (gastroesophageal reflux disease) Code(s): K21.9 - GASTRO-ESOPHAGEAL REFLUX DISEASE WITHOUT ESOPHAGITIS Status: Acute - Plan Plan: Pt is a 75 yo male here for R TKA and TAMP is consulted for medical management: # R TKA - care per surgical team - PT/OT - CM for discharge # CAD s/p bypass x 4 - restart ASA per surgical team - restart home bp meds as below - outpt cards - Dr. Morrow who recently saw pt - Defib/Pacer # Anxiety w/ sleep - continue home meds # HTN - restart lasix, spironolactone, coreg - monitor blood pressure - restart lasix at home # BPH - continue home meds # HLD - continue home meds # GERD - continue home meds VTE: per surgical team Diet: HH Code: Full Dispo: discharge per primary team Addendum - Attending - Attending Attestation Date/Time: 07/11/20 [id number] I personally evaluated the patient and discussed the management with Dr. Nunn. I agree with the History, Examination, Assessment and Plan documented above with any addition or exceptions noted below. The patient is doing well. Knee pain is controlled. Anticipate he will be discharged by ortho today. BLood pressure is stable.
[2020-07-11] MEDS: Ubidecarenone 50 MG CAP PO SCH (08:45)
[2020-07-11] MEDS: Tamsulosin HCl 0.4 MG CAP PO SCH (08:45)
[2020-07-11] MEDS: Potassium Chloride 20 MEQ TAB PO SCH (08:45)
[2020-07-11] MEDS: Dicyclomine 20 MG TAB PO SCH (08:45)
[2020-07-11] MEDS: Multivitamin W/ Minerals 1 TAB PO SCH (08:46)
[2020-07-11] MEDS: Ferrous Gluconate 324 MG TAB PO SCH (08:46)
[2020-07-11] MEDS: Aspirin 325 mg Enteric Coated Tablet PO SCH (08:46)
[2020-07-11] MEDS: Losartan 25 MG TAB PO SCH (08:46)
[2020-07-11] MEDS: Dutasteride 0.5 MG CAP PO SCH (08:46)
[2020-07-11] MEDS: Carvedilol 25 MG TAB PO SCH (08:46)
[2020-07-11] MEDS: Senokot S 8.6-50 MG TAB PO SCH (09:19)
[2020-07-11 12:22] VITALS: BP 167/84; TEMP 98.4
== END 2020-07-11 13:10 | disposition home or self-care (01) | DRG 470 ==
LOC: SJJU 07-09 07:56
PROVIDERS: ADMIT Orthopaedic Surgery; ATTEND Orthopaedic Surgery
PROC: 0SRC0J9 Replacement of Right Knee Joint with Synthetic Substitute, Cemented, Open Approach (ICD-10-PCS; principal; 2020-07-09)
DX: M17.11 Unilateral primary osteoarthritis, right knee (principal); I25.110 Atherosclerotic heart disease of native coronary artery with unstable angina pectoris; N40.0 Benign prostatic hyperplasia without lower urinary tract symptoms; F41.9 Anxiety disorder, unspecified; I10 Essential (primary) hypertension; K21.9 Gastro-esophageal reflux disease without esophagitis; E78.5 Hyperlipidemia, unspecified; Z79.899 Other long term (current) drug therapy; Z79.82 Long term (current) use of aspirin; Z95.1 Presence of aortocoronary bypass graft
CPT/HCPCS: 36415; 85027; C1713; C1776; J0670; J0690; J1100; J1885; J2250; J2405; J2704; J2795; J3010; J3370; J3490

== ENCOUNTER 2021-06-27 12:25 | Outpatient (CLI) | payer MEDICARE, BC ==
[2021-06-28 16:40] LABS: SARS-CoV-2 PCR by NAA Not Detected (NotDetected)
== END 2021-06-27 12:26 | disposition home or self-care (01) ==
LOC: LABBT 12:25
PROVIDERS: ATTEND Urology
DX: Z01.812 Encounter for preprocedural laboratory examination (principal); Z20.822 Contact with and (suspected) exposure to COVID-19
CPT/HCPCS: U0003; U0005

== ENCOUNTER 2021-07-02 06:48 | Day surgery (SDC) | payer MEDICARE, BC ==
[2021-07-01 09:52] VITALS: BMI 26.4
[2021-07-02] MEDS ORDERED: Levofloxacin 500 mg/D5W 100 ml Premix Bag ONE (07:17)
[2021-07-02] MEDS ORDERED: Famotidine/PF 20 mg/2ml Vial ONE (08:35)
[2021-07-02] MEDS ORDERED: Midazolam HCl 2 mg/2 ml Vial ONE (08:35)
[2021-07-02] MEDS ORDERED: Fentanyl 100 MCG/2 ML VIAL ONE (08:35)
[2021-07-02] MEDS ORDERED: Metoclopramide HCl 10 MG/2 ML VIAL ONE (08:52)
[2021-07-02] MEDS ORDERED: Ondansetron PF 4 MG/2 ML Vial ONE (08:52)
[2021-07-02] MEDS ORDERED: Lidocaine 1% PF 5 ML VIAL ONE (08:52)
[2021-07-02] MEDS ORDERED: PROPOFOL 200 MG/20 ML VIAL ONE (08:52)
[2021-07-02] MEDS ORDERED: HYDROcodone/Acetaminophen 5/325 mg Tablet ONE (11:16)
== END 2021-07-02 11:55 | disposition home or self-care (01) ==
LOC: SDC 06:48
PROVIDERS: ATTEND Urology
PROC: 0T7D8DZ Dilation of Urethra with Intraluminal Device, Via Natural or Artificial Opening Endoscopic (ICD-10-PCS; principal; 2021-07-02)
DX: N40.1 Benign prostatic hyperplasia with lower urinary tract symptoms (principal); R33.8 Other retention of urine; R39.14 Feeling of incomplete bladder emptying; N32.89 Other specified disorders of bladder; I11.0 Hypertensive heart disease with heart failure; I50.20 Unspecified systolic (congestive) heart failure; I25.10 Atherosclerotic heart disease of native coronary artery without angina pectoris; E78.5 Hyperlipidemia, unspecified; I42.9 Cardiomyopathy, unspecified; I44.7 Left bundle-branch block, unspecified; K21.9 Gastro-esophageal reflux disease without esophagitis; M48.062 Spinal stenosis, lumbar region with neurogenic claudication; I48.0 Paroxysmal atrial fibrillation; I34.0 Nonrheumatic mitral (valve) insufficiency; Z79.82 Long term (current) use of aspirin; Z79.899 Other long term (current) drug therapy; Z95.1 Presence of aortocoronary bypass graft; Z95.810 Presence of automatic (implantable) cardiac defibrillator
CPT/HCPCS: J1956; J2250; J2405; J2704; J2765; J3010; L8699; S0028

== ENCOUNTER 2023-12-23 10:21 | Day surgery (SDC) | payer MEDICARE, BC ==
[2023-12-22 09:00] VITALS: BMI 25.1
[2023-12-23] MEDS ORDERED: PROPOFOL 40 ML ONE (12:15)
[2023-12-23] MEDS ORDERED: Lidocaine 1% PF 5 ML VIAL ONE (13:17)
== END 2023-12-23 14:27 | disposition home or self-care (01) ==
LOC: SDC 10:21
PROVIDERS: ATTEND Internal Medicine Gastroenterology
PROC: 0DBN8ZZ Excision of Sigmoid Colon, Via Natural or Artificial Opening Endoscopic (ICD-10-PCS; principal; 2023-12-23)
PROC: 0DBK8ZX Excision of Ascending Colon, Via Natural or Artificial Opening Endoscopic, Diagnostic (ICD-10-PCS; 2023-12-23)
DX: D12.5 Benign neoplasm of sigmoid colon (principal); K57.30 Diverticulosis of large intestine without perforation or abscess without bleeding; K64.8 Other hemorrhoids; K21.9 Gastro-esophageal reflux disease without esophagitis; I11.0 Hypertensive heart disease with heart failure; I50.9 Heart failure, unspecified; E11.9 Type 2 diabetes mellitus without complications; I25.10 Atherosclerotic heart disease of native coronary artery without angina pectoris; E78.00 Pure hypercholesterolemia, unspecified; M19.90 Unspecified osteoarthritis, unspecified site; Z80.0 Family history of malignant neoplasm of digestive organs; Z95.810 Presence of automatic (implantable) cardiac defibrillator; Z95.1 Presence of aortocoronary bypass graft; Z79.84 Long term (current) use of oral hypoglycemic drugs; Z79.899 Other long term (current) drug therapy
CPT/HCPCS: 88305; J2704